=== PATIENT | female | born 1975 | race Caucasian/White ===

== ENCOUNTER 2022-05-30 13:23 | Emergency (ER) | payer MEDICAID, SELFPAY ==
[2022-05-30 13:24] VITALS: BP 133/93; PULSE 113; RESP 14; TEMP 36.4; O2SAT 93
--- NOTE | 2022-05-30 13:32 | ED_ITS ---
HPI - Altered Mental Status General: Chief Complaint: Altered Mental Status Stated Complaint: FOUND PASSED OUT/ AMS Time Seen by Provider: 05/30/22 13:24 Source: EMS Mode of arrival: EMS Limitations: altered mental status History of Present Illness: 47-year-old female who is brought in by EMS after she was found passed out in the bathroom at [employer]. Patient speech is slurred and incomprehensible. She denies alcohol or drug use. Patient is able to ambulate from the EMS cot to the ER cart. She denies suicidal or homicidal ideations. Review of Systems General: Reports: ROS unobtainable due to mental status PFS ED PFSH: Medical History Fibromyalgia Scoliosis Surgical History History of cholecystectomy Family History Mother Fatty liver Heart enlarged Bipolar 1 disorder Alcohol abuse Other Cancer Hyperlipidemia Hypertension Denies family history of Diabetes CAD (coronary artery disease) Lung disease Stroke Social History Smoking and tobacco status: current every day smoker Alcohol intake: never Adopted: No Caregiver/support person: No Lives independently: No Household members: significant other service: No Current occupational status: unemployed Sexually active: Yes Current gender identity: Female Physical Exam Const: COMMON NORMALS: no acute distress OTHER: Patient is sleepy but wakes easily. When threatened with Narcan, she promptly sits up on the cart. HENMT: OTHER: Pupils pinpoint, external ears are normal. Oropharynx is clear. Conjunctiva are pink. No scleral icterus Eye: COMMON NORMALS: Equal, round and reactive pupils present, EOMs intact bilaterally, conjunctivae normal and no scleral icterus CONJUNCTIVA: Yes conjunctivae normal PUPIL: Yes Equal, round and reactive pupils present OTHER: Pinpoint pupils Neck/C-Spine: OTHER: Neck supple, trachea midline Resp: COMMON NORMALS: normal respiratory effort OTHER: Lungs are clear bilaterally. Cardio: COMMON NORMALS: regular rate and regular rhythm RATE: regular rate RHYTHM: regular rhythm GI: COMMON NORMALS: Normal to inspection, nondistended, normoactive bowel sounds present, Soft to palpation and non-tender PALPATION: Yes Soft to palpation Extremity: OTHER: No trauma noted, no track marie. Neuro: OTHER: Moves all extremities symmetrically. No obvious cranial nerve defect. Speech is slurred and incomprehensible. Psych: OTHER: No suicidal or homicidal ideations. Skin: OTHER: Warm and pink Course ED course: Patient was evaluated in the emergency department. She presented after being found unresponsive in the bathroom at a local business. She was somnolent but somewhat intermittently agitated. She did require Ativan 1 mg IV. She slept for several hours. She is mildly hypokalemic with a potassium of 3.0. Glucose is 141. Drug screen is positive for amphetamines marijuana. Tylenol and aspirin levels are 0. White blood cell count is normal. Reevaluation(s): Reevaluation #1: Patient is alert and oriented x3. Speech is clear. She is cooperative at this time. She is wanting to go home. She has a friend that she will call for a ride. Clinically she is sober at this time and I feel stable for discharge home. Do not feel that CT is indicated at this point so we will get that order has been canceled. Patient has been instructed to avoid using drugs. She has been instructed to return if she has any further problems. Time: 17:16 Vital Signs: Vital signs: Vital Signs Temperature 97.6 F 05/30/22 13:24 Pulse Rate 113 H 05/30/22 13:24 Respiratory Rate 14 05/30/22 13:24 Blood Pressure 133/93 05/30/22 13:24 Pulse Oximetry 93 05/30/22 13:24 Oxygen Delivery Me thod 05/30/22 13:24 MDM - Altered Mental Status Medical Decision Making 47-year-old female presents after being found unresponsive in the bathroom at a local business. The patient has slurred speech somewhat incomprehensible. She falls asleep when not being talked to but wakes easily. When threatened with Narcan, she promptly sits up. I do suspect that this is probably an issue of substance overuse. Will obtain labs including a drug screen. We will CT her he ad. We will give her an IV fluid bolus. We will observe the patient until she is clinically sober Lab Data 05/30/22 13:30 05/30/22 13:30 Laboratory Results WBC 7.0 10^3/uL (4.0-10.0) 05/30/22 13:30 RBC 4.46 10^6/uL (4.1-5.3) 05/30/22 13:30 Hgb 14.4 g/dL (11.5-15.3) 05/30/22 13:30 Hct 42.8 % (37.0-47.0) 05/30/22 13:30 MCV 96.0 fl (81-99) 05/30/22 13:30 MCH 32.3 pg (28.0-34.0) 05/30/22 13:30 MCHC 33.6 g/dL (30.0-36.0) 05/30/22 13:30 RDW 12.1 % (12.1-15.1) 05/30/22 13:30 Plt Count 323 10^3/cmm (130-400) 05/30/22 13:30 MPV 9.9 fL (7.4-10.4) 05/30/22 13:30 Neut % (Auto) 54.4 % 05/30/22 13:30 Lymph % (Auto) 35.7 % 05/30/22 13:30 [place] % (Auto) 7.5 % 05/30/22 13:30 Eos % (Auto) 1.4 % 05/30/22 13:30 Baso % (Auto) 0.6 % 05/30/22 13:30 Neut # (Auto) 3.83 10^3/uL (1.8-7.7) 05/30/22 13:30 Lymph # (Auto) 2.5 10^3/uL (0.8-4.8) 05/30/22 13:30 Greene # (Auto) 0.5 10^3/uL (0.2-0.9) 05/30/22 13:30 Eos # (Auto) 0.1 10^3/uL (0.0-0.8) 05/30/22 13:30 Baso # (Auto) 0.0 10^3/uL (0.0-0.1) 05/30/22 13:30 Nucleated RBC % (auto) 0 % 05/30/22 13:30 Nucleated RBCs # 0.0 /100WBC 05/30/22 13:30 Sodium 140 mmol/L (136-145) 05/30/22 13:30 Potassium 3.0 mmol/L (3.5-5.1) L 05/30/22 13:30 Chloride 100 mmol/L (98-107) 05/30/22 13:30 Carbon Dioxide 26 mmol/L (22-29) 05/30/22 13:30 Anion Gap 17.0 (5-19) 05/30/22 13:30 BUN 10 mg/dL (6-20) 05/30/22 13:30 Creatinine 0.7 mg/dL (0.5-0.9) 05/30/22 13:30 GFR Calculation 90.1 mL/min (90-130) 05/30/22 13:30 Glucose 141 mg/dL (65-115) H 05/30/22 13:30 Calculated Osmolality 291 mOsm/kg (285-295) 05/30/22 13:30 Calcium 9.5 mg/dL (8.5-10.5) 05/30/22 13:30 Total Bilirubin 0.6 mg/dL (0.15-1.2) 05/30/22 13:30 AST 19 U/L (0-32) 05/30/22 13:30 ALT 20 U/L (0-33) 05/30/22 13:30 Alkaline Phosphatase 107 U/L (35-105) H 05/30/22 13:30 Total Protein 7.5 g/dL (6.6-8.7) 05/30/22 13:30 Albumin 4.5 g/dL (3.5-5.2) 05/30/22 13:30 Globulin 3.0 g/dL (1.3-4.6) 05/30/22 13:30 TSH 1.02 uIU/mL (0.27-4.20) 05/30/22 13:30 Urine Color Yellow (Yellow) 05/30/22 13:31 Urine Appearance Clear (CLEAR) 05/30/22 13:31 Urine pH 5 (5-7) 05/30/22 13:31 Ur Specific [place] 1.030 (1.005-1.030) 05/30/22 13:31 Urine Protein Trace (Negative) 05/30/22 13:31 Urine Glucose (UA) Norm (Normal) 05/30/22 13:31 Urine Ketones 1+ (Negative) H 05/30/22 13:31 Urine Blood 2+ (Negative) H 05/30/22 13:31 Urine Nitrate Negative (Negative) 05/30/22 13:31 Urine Bilirubin 1+ (Negative) H 05/30/22 13:31 Urine Urobilinogen 1 mg/dL (Negative) H 05/30/22 13:31 Ur Leukocyte Esterase Negative (Negative) 05/30/22 13:31 Urine RBC 0-4 /hpf (0-2) H 05/30/22 13:31 Urine WBC None /hpf (0-5) 05/30/22 13:31 Ur Squamous Epith Cells 0-4 /hpf (0-5) H 05/30/22 13:31 Amorphous Sediment Not Reportable 05/30/22 13:31 Urine Bacteria None /hpf (NONE) 05/30/22 13:31 Salicylates < 0.3 mg/dL (3-10) L 05/30/22 13:30 Urine Opiates Screen Negative ng/mL (Negative) 05/30/22 13:31 Acetaminophen < 5.0 ug/mL (10-30) L 05/30/22 13:30 Ur Barbiturates Screen Negative ng/mL (Negative) 05/30/22 13:31 Ur Phencyclidine Scrn Negative ng/mL (Negative) 05/30/22 13:31 Ur Amphetamines Screen Positive ng/mL (Negative) H 05/30/22 13:31 U Benzodiazepines Scrn Negative ng/mL (Negative) 05/30/22 13:31 Urine Cocaine Screen Negative ng/mL (Negative) 05/30/22 13:31 U Marijuana (THC) Screen Positive ng/mL (Negative) H 05/30/22 13:31 Ethyl Alcohol < 10 mg/dL (0-10) 05/30/22 13:30 Discharge Plan Discharge Patient Disposition: Home Clinical Impression: Amphetamine abuse, Altered mental status, Hypokalemia Condition: Stable Prescriptions: No Action tramadol 50 mg tablet 50 mg PO DAILY 30 Days Qty: 40 2RF [place] Blue 1 % shampoo 1 applic topical DAILY 7 Days Qty: 325 0RF Rx Instructions: massage into affected area; leave on for 10 mins ; rinse off thoroughly lisinopril 10 mg tablet 10 mg PO DAILY duloxetine 60 mg capsule,delayed release(DR/EC) 60 mg PO BEDTIME Discharge Orders: Discharge ED (Routine); Ordered 05/30/22 Ordered By: Janay Moreno Referrals: Joel Odom FNP [Primary Care Provider] - Discharge Diet: Advance as tolerated Discharge Activity: Resume usual activity Patient Instructions: Methamphetamine Use Disorder (ED), Opioid Safety, Pain Management Coding Level of Care Code ED Emergency Vehicle Operations Instructor for Alina Nixon
[2022-05-30 13:40] LABS: Blood Urine 2+ (Negative); Glucose Urine UA Norm (Normal); Ketones Urine 1+ (Negative); Nitrate Urine Negative (Negative); Protein Urine Trace (Negative); Urine Appearance Clear (CLEAR); Urine Color Yellow (Yellow); pH Urine 5 (5-7)
[2022-05-30 13:41] LABS: Add Urine Microscopic? YES; Bilirubin Urine 1+ (Negative); Leukocyte Esterase Urine Negative (Negative); Urobilinogen Urine 1 mg/dL (Negative)
[2022-05-30 13:55] LABS: Add Urine Culture? No; RBC Urine 0-4 /hpf (0-2); Squamous Epithelial Cell Urine 0-4 /hpf (0-5)
[2022-05-30 14:02] LABS: Basophils % 0.6 %; Eosinophils # 0.1 10^3/uL (0.0-0.8); Eosinophils % 1.4 %; Hematocrit 42.8 % (37.0-47.0); Hemoglobin 14.4 g/dL (11.5-15.3); Lymphocytes # 2.5 10^3/uL (0.8-4.8); Lymphocytes % 35.7 %; Mean Corpuscular HGB Conc 33.6 g/dL (30.0-36.0); Mean Corpuscular Hemoglobin 32.3 pg (28.0-34.0); Mean Platelet Volume 9.9 fL (7.4-10.4); Monocytes # 0.5 10^3/uL (0.2-0.9); Monocytes % 7.5 %; Neutrophils # 3.83 10^3/uL (1.8-7.7); Neutrophils % 54.4 %; Nucleated Red Blood Cells % 0 %; Platelet Count 323 10^3/cmm (130-400); Red Blood Count 4.46 10^6/uL (4.1-5.3); Red Cell Distribution Width 12.1 % (12.1-15.1)
[2022-05-30] MEDS: sodium chloride 0.9% 1,000 ML 999 ML IV (14:09)
[2022-05-30] MEDS: OLANZapine 10 mg VIAL IM (14:15)
--- NOTE | 2022-05-30 14:15 | PC.PHAR ---
PT UNABLE TO VERIFY DUE TO AMS- MEDICATIONS VERIFIED USING LAST FILLED EXTERNAL MED LIST AND CALLING PTS PHARMACY
[2022-05-30 14:34] LABS: Amphetamines Screen Urine Positive (Negative); Barbiturates Screen Urine Negative (Negative); Benzodiazepines Screen Urine Negative (Negative); Cocaine Screen Urine Negative (Negative); Opiate Screen Urine Negative (Negative); PCP Screen Urine Negative (Negative); THC Screen Urine Positive (Negative)
[2022-05-30 14:37] LABS: Alanine Aminotransferase 20 U/L (0-33); Albumin Level 4.5 g/dL (3.5-5.2); Alkaline Phosphatase 107 U/L (35-105); Aspartate Amino Transferase 19 U/L (0-32); Blood Urea Nitrogen 10 mg/dL (6-20); Calcium 9.5 mg/dL (8.5-10.5); Carbon Dioxide 26 mmol/L (22-29); Chloride 100 mmol/L (98-107); Glomerular Filtration Rate 90.1 mL/min (90-130); Glucose 141 mg/dL (65-115); Osmolality Calculated 291 mOsm/kg (285-295); Sodium 140 mmol/L (136-145); Thyroid Stimulating Hormone 1.02 uIU/mL (0.27-4.20); Total Bilirubin 0.6 mg/dL (0.15-1.2); Total Protein 7.5 g/dL (6.6-8.7)
[2022-05-30 14:38] LABS: Salicylate < 0.3 mg/dL (3-10)
[2022-05-30 14:39] LABS: Acetaminophen < 5.0 ug/mL (10-30); Alcohol Level < 10 mg/dL (0-10)
--- NOTE | 2022-05-30 16:31 | PC.NURSE ---
report given to eduardo casillas assumed care.
== END 2022-05-30 17:49 | disposition home or self-care (01) ==
PROVIDERS: Emergency Provider Emergency Medicine; PCP Registered Nurse
DX: F15.10 Other stimulant abuse, uncomplicated (principal); R41.82 Altered mental status, unspecified; E87.6 Hypokalemia; F17.210 Nicotine dependence, cigarettes, uncomplicated
CPT/HCPCS: 80053; 80306; 80307; 81001; 84443; 85025; 96372; 99284; J3490; J7030